=== PATIENT | female | born 2000 | race Caucasian/White ===

== ENCOUNTER 2025-09-19 09:57 | Inpatient (IN) | payer MEDICAID, OTHER, SELFPAY ==
[2025-09-18 17:13] LABS: Hematocrit 36.3 % (34.9-44.5); Hemoglobin 12.0 g/dL (12.0-15.5); Mean Corpuscular Hemoglobin 30.7 pg (27.0-33.0); Mean Corpuscular Volume 92.8 fL (81.6-98.3); Platelet Count 283 10x3/uL (150-450); Red Blood Cell (RBC) Count 3.91 10x6/uL (3.90-5.03); White Blood Cell (WBC) Count 7.68 10x3/uL (3.5-10.5)
[2025-09-18 17:45] LABS: Syphilis Antibody Index 0.04 S/CO (<1.00 Non-Reactive)
[2025-09-18 17:46] LABS: HIV (1/2) Antibody/Antigen Non-Reactive (NonReactive); HIV 1/2 INDEX 0.08 S/CO (<1.00); Hep B Surf Ag Non-Reactive S/CO (NonReactive)
[2025-09-19] MEDS ORDERED: hydrALAZINE 20 MG/ML VIAL SLOW IVP PRN ×2 (10:07→17:01)
[2025-09-19] MEDS ORDERED: Methylergonovine 0.2 MG/ML VIAL IM PRN ×2 (10:07→17:01)
[2025-09-19] MEDS ORDERED: Carboprost 250 MCG/ML AMP IM PRN (10:07)
[2025-09-19] MEDS ORDERED: Tranexamic Acid 1,000 MG/10 ML VIAL IVP PRN (10:07)
[2025-09-19] MEDS ORDERED: Ondansetron PF 4 MG/2 ML Vial IVP PRN ×4 (10:07→17:01)
[2025-09-19] MEDS ORDERED: Bicitra 30 ML UDCUP PO PRN (10:07)
[2025-09-19] MEDS ORDERED: Diphenoxylate HCl/Atropine Tablet PO PRN (10:07)
[2025-09-19] MEDS ORDERED: Oxytocin 30 units/NS 500 ML 500 ML IV SCH ×2 (10:15→17:01)
[2025-09-19] MEDS ORDERED: Meperidine HCl/PF 25 MG (1 mL) VIAL SLOW IVP PRN (10:33)
[2025-09-19] MEDS ORDERED: diphenhydrAMINE 50 MG/ML VIAL IVP PRN (10:33)
[2025-09-19] MEDS ORDERED: Communication Order-Pharmacy FS SCH (10:45)
[2025-09-19] MEDS: Famotidine/PF 20 mg/2ml Vial SLOW IVP PRN (12:17)
[2025-09-19] MEDS ORDERED: Acetaminophen 325 MG TAB PO PRN (17:01)
[2025-09-19] MEDS ORDERED: Lanolin Ointment 7 GM TUBE TOP PRN (17:01)
[2025-09-19] MEDS ORDERED: Bisacodyl 10 MG SUPP PR PRN (17:01)
[2025-09-19] MEDS ORDERED: diphenhydrAMINE 25 MG CAP PO PRN (17:01)
[2025-09-19] MEDS: CEFAZOLIN 2 GM VIAL ONE (17:20)
[2025-09-19] MEDS: Famotidine/PF 20 mg/2ml Vial ONE (17:20)
[2025-09-19] MEDS: Phenylephrine 40 MG/NS 250 ML 250 ML ONE (17:21)
[2025-09-19] MEDS: Dexamethasone 10 MG/ML VIAL ONE (17:22)
[2025-09-19] MEDS: Ondansetron PF 4 MG/2 ML Vial ONE (17:22)
[2025-09-19] MEDS: Ketorolac Tromethamine 30 MG (1 mL) VIAL IVP SCH (19:35)
[2025-09-19] MEDS: Ferrous Sulfate 325 MG TAB PO SCH (21:00)
[2025-09-20 06:19] LABS: Hematocrit 32.1 % (34.9-44.5); Hemoglobin 10.5 g/dL (12.0-15.5); Mean Corpuscular Hemoglobin 30.6 pg (27.0-33.0); Mean Corpuscular Volume 93.6 fL (81.6-98.3); Platelet Count 234 10x3/uL (150-450); Red Blood Cell (RBC) Count 3.43 10x6/uL (3.90-5.03); White Blood Cell (WBC) Count 9.95 10x3/uL (3.5-10.5)
[2025-09-20] MEDS: Enoxaparin 40 MG (0.4 mL) SYRINGE SC SCH (09:13)
[2025-09-20] MEDS: Ibuprofen 800 MG TAB PO SCH (18:29)
[2025-09-21] MEDS: HYDROcodone/Acetaminophen 5/325 mg Tablet PO PRN (05:13)
[2025-09-22] MEDS: HYDROcodone/Acetaminophen 5/325 mg Tablet PO PRN (01:19)
[2025-09-22 03:42] VITALS: BMI 38.9
[2025-09-22 07:50] VITALS: BP 110/71; TEMP 97.9
[2025-09-22] MEDS: Simethicone Chewable 80 MG TAB PO PRN (08:32)
== END 2025-09-22 13:40 | disposition home or self-care (01) | DRG 788 ==
LOC: CSHLD 09:57 → CSHPP 18:42
PROVIDERS: ADMIT Family Medicine; ATTEND Family Medicine
PROC: 10D00Z1 Extraction of Products of Conception, Low, Open Approach (ICD-10-PCS; principal; 2025-09-19)
PROC: 4A1HXCZ Monitoring of Products of Conception, Cardiac Rate, External Approach (ICD-10-PCS; 2025-09-19)
PROC: 10907ZC Drainage of Amniotic Fluid, Therapeutic from Products of Conception, Via Natural or Artificial Opening (ICD-10-PCS; 2025-09-19)
DX: O30.043 Twin pregnancy, dichorionic/diamniotic, third trimester (principal); O99.214 Obesity complicating childbirth; Z3A.37 37 weeks gestation of pregnancy; O99.824 Streptococcus B carrier state complicating childbirth; Z37.2 Twins, both liveborn; O43.123 Velamentous insertion of umbilical cord, third trimester; O32.1XX0 Maternal care for breech presentation, not applicable or unspecified; E66.811 Obesity, class 1; O69.81X2 Labor and delivery complicated by cord around neck, without compression, fetus 2; Z79.82 Long term (current) use of aspirin; Z79.899 Other long term (current) drug therapy
CPT/HCPCS: 36415; 51702; 85027; 86780; 86850; 86900; 86901; 87340; 87389; J1100; J1308; J1650; J1885; J2274; J2405; J2550